=== PATIENT | female | born 1980 | race Asian ===

== ENCOUNTER 2017-12-26 20:09 | Emergency (ER) | payer OTHER ==
[~2017-12-26] VITALS: Ht 162.6 cm; Wt 52.0 kg
[2017-12-26] MEDS: CEFTRIAXONE 1 G PREMIX 50 ML IV ONE (20:56)
[2017-12-26] MEDS: ACETAMINOPHEN 325MG TABLET PO STA (20:56)
[2017-12-26] MEDS: SODIUM CHLORIDE 0.9% 1,000 ML IV ONE (20:56)
[2017-12-26 20:58] LABS: CHLORIDE 105 mEq/L (98-107)
[2017-12-26 21:02] LABS: CARBON DIOXIDE 23 mEq/L (21-32); PROTHROMBIN TIME 10.6 sec (9.4-11.6)
[2017-12-26 21:03] LABS: ETHANOL BLOOD < 10 mg/dL
[2017-12-26 21:10] LABS: HEMATOCRIT. 40.2 % (36.0-48.0); HEMOGLOBIN. 13.2 g/dL (12.0-16.0); MEAN CORPUSCULAR HEMOGLOBIN 29.1 pg (28.0-32.0); MEAN CORPUSCULAR VOLUME 88.6 fL (81.0-99.0); MEAN PLATELET VOLUME 8.1 fl (7.4-10.4); PLATELET 189 x1000/uL (130-400); RED BLOOD CELL COUNT 4.54 mill/uL (4.2-5.4); RED CELL DISTRIBUTION WIDTH 13.2 % (11.6-14.6)
[2017-12-26 21:16] LABS: HCG SCREEN NEGATIVE
[2017-12-26] MEDS: VANCOMYCIN 1 G PREMIX 200 ML IV ONE (21:30)
[2017-12-26] MEDS: CHOLECALCIFEROL (D3) 1000 UNIT TABLET PO SCH (21:30)
[2017-12-26] MEDS: PREDNISONE 5MG TABLET PO SCH (21:30)
[2017-12-26 21:33] LABS: CLARITY URINE CLOUDY (CLEAR); COLOR URINE YELLOW (YELLOW); KETONES URINE NEGATIVE (NEGATIVE); LEUKOCYTE ESTERASE URINE 3+ (NEGATIVE); NITRITE URINE POSITIVE (NEGATIVE); OCCULT BLOOD URINE 3+ (NEGATIVE); PROTEIN URINE 2+ (NEGATIVE); SPECIFIC GRAVITY URINE 1.012 (1.005-1.030); UROBILINOGEN URINE 0.2 E.U./dL (0.2-1.0)
[2017-12-26 21:38] LABS: PLATELET ESTIMATE NORMAL
[2017-12-26 21:45] LABS: *AMPHETAMINES SCREEN URINE NEGATIVE (NEGATIVE); *BARBITURATES SCREEN URINE NEGATIVE (NEGATIVE); *BENZODIAZEPINES SCREEN URINE NEGATIVE (NEGATIVE); *COCAINE SCREEN URINE NEGATIVE (NEGATIVE); CANNABINOID URINE SCREEN NEGATIVE (NEGATIVE); METHADONE URINE SCREEN NEGATIVE (NEGATIVE); OPIATES URINE SCREEN NEGATIVE (NEGATIVE); PHENCYCLIDINE URINE SCREEN NEGATIVE (NEGATIVE)
[2017-12-27 00:15] VITALS: BP 118/76
== END 2017-12-27 00:30 | disposition home or self-care (01) ==
LOC: ER 20:09
DX: N12 Tubulo-interstitial nephritis, not specified as acute or chronic (principal); E86.0 Dehydration; M32.9 Systemic lupus erythematosus, unspecified
CPT/HCPCS: 36415; 70450; 71045; 80053; 80305; 81001; 83605; 84703; 85025; 85610; 87040; 87077; 87086; 87186; 87804; 96365; 96367; 99285; G0482; J0696; J3370; J7030; J7512